=== PATIENT | female | born 1965 ===

== ENCOUNTER 2018-02-18 14:35 | Day surgery (SDC) | payer OTHER ==
[2018-02-18 15:02] VITALS: BMI 30.5
[2018-02-18] MEDS ORDERED: Barium Sulfate Susp 2.1% w/v, 2.0% w/w 450 mL Bottle PO ONE (15:09)
[2018-02-18] MEDS ORDERED: Sodium Chloride 0.45% 1,000 ML IV SCH (15:15)
--- NOTE | 2018-02-18 15:24 | ED PDOC ---
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 Patient denies fevers or chills. States she has had continued pain to the abdomen. 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 Patient states she needs to have MRI and PET scan as well as a biopsy patient denies dizziness or weakness. No chest pain or shortness of breath. No other complaints. Time/Duration: > week Past Medical History - Provider Review Nursing Documentation Reviewed: Yes - Travel History Have you recently traveled outside [place] w/in the past 3 mons?: No - Cardiac Hx Cardiac Disorders: Yes Hx Hypertension: Yes - Pulmonary Hx Respiratory Disorders: No - Neurological Hx Neurological Disorder: No - HEENT Hx HEENT Disorder: No - Renal Hx Renal Disorder: No - Endocrine/Metabolic Hx Endocrine Disorders: No - Hematological/Oncological Hx Blood Disorders: No - Integumentary Hx Dermatological Disorder: No - Musculoskeletal/Rheumatological Hx Musculoskeletal Disorders: No - Gastrointestinal Hx Gastrointestinal Disorders: No - Genitourinary/Gynecological Hx Genitourinary Disorders: No - Psychiatric Hx Psychophysiologic Disorder: No Hx Substance Use: No - Anesthesia Hx Anesthesia: No Family/Social History - Physician Review Nursing Documentation Reviewed: Yes Family/Social History: Unknown Family HX Smoking Status: Light Smoker < 10 Cigarettes Daily Hx Alcohol Use: Yes Hx Substance Use: No Allergies/Home Meds Allergies/Adverse Reactions: Allergies latex Allergy (Verified 02/14/18 10:30) RASH Home Medications: Home Meds Medication Instructions Recorded Confirmed Atorvastatin [Lipitor] 10 mg PO DAILY 02/14/18 02/18/18 Triamterene/Hydrochlorothiazid 1 cap PO DAILY 02/14/18 02/18/18 [Triamterene-Hctz 37.5-25 mg Cp] amLODIPine [Norvasc] 5 mg PO DAILY 02/14/18 02/18/18 Review of Systems - Review of Systems Constitutional: absent: Fatigue, Fevers Respiratory: absent: SOB, Cough Cardiovascular: absent: Chest Pain, Palpitations Gastrointestinal: Abdominal Pain. absent: Constipation, Diarrhea, Nausea, Vomiting Genitourinary Female: absent: Dysuria, Frequency, Hematuria Musculoskeletal: Back Pain. absent: Arthralgias, Neck Pain Skin: absent: Rash, Pruritis Neurological: absent: Headache, Dizziness Psychiatric: absent: Anxiety, Depression Physical Exam Vital Signs Reviewed: Yes Vital Signs Temp Pulse Resp BP Pulse Ox 02/18/18 17:14 86 18 123/77 97 02/18/18 15:23 98.5 F 91 H 18 115/78 99 Temperature: Afebrile Blood Pressure: Normal Pulse: Regular Respiratory Rate: Normal Appearance: Positive for: Well-Appearing, Non-Toxic, Comfortable Pain Distress: None Mental Status: Positive for: Alert and Oriented X 3 - Systems Exam Head: Present: Atraumatic Respiratory/Chest: Present: Clear to Auscultation Cardiovascular: Present: Regular Rate and Rhythm Abdomen: Present: Tenderness (+ minimal ruq tenderness rlq tenderness). No: Distention, Peritoneal Signs Medical Decision Making ED Course and Treatment: 02/18/18 18:40 52yr old female with abdominal pain, found to have ovarian mass with metastatic spread. EKG shows normal sinus rhythm at 90 bpm normal axis normal intervals no ST elevations cbc; wnl cmp; wnl pt/ptt wnl case discussed with dr. Romero; will admit to same day surgery for ct guided biopsy of omentum. impression; abdominal pain, hx of metastatic CA admit to Same day Surgery dr. Yosvany romero. - Lab Interpretations Lab Results: 02/18/18 15:50 02/18/18 15:50 Lab Results 02/18/18 15:50: WBC 9.3, RBC 4.52, Hgb 12.6, Hct 37.9, MCV 83.8, MCH 27.9, MCHC 33.2, RDW 12.9, Plt Count 412, MPV 9.1, Gran % 71.2 H, Lymph % (Auto) 18.7 L, Redwood % (Auto) 6.9 H, Eos % (Auto) 2.8, Baso % (Auto) 0.4, Gran # 6.64 H, Lymph # (Auto) 1.7, Redwood # (Auto) 0.6, Eos # (Auto) 0.3, Baso # (Auto) 0.04 02/18/18 15:50: Sodium 139, Potassium 3.3 L, Chloride 100, Carbon Dioxide 27, Anion Gap 15, BUN 13, Creatinine 1.2, Est GFR ( Amer) 57, Est GFR (Non- Af Amer) 47, Random Glucose 114 H, Calcium 9.2, Total Bilirubin 0.6, AST 33, ALT 15, Alkaline Phosphatase 93, Total Protein 9.6 H, Albumin 4.1, Globulin 5.5 , Albumin/Globulin Ratio 0.8 L 02/18/18 15:50: PT 13.6 H, INR 1.19, APTT 26.3 - RAD Interpretation Radiology Orders: 02/18/18 14:58 CT GUIDED PELVIS BX BUNDLE [CT] Routine - Medication Orders Current Medication Orders: Sodium Chloride (Sodium Chloride 0.45%) 1,000 mls @ 80 mls/hr IV .[id number] DOC Last Admin: 02/18/18 15:52 Dose: 80 mls/hr eMAR Start Stop Document 02/18/18 15:52 [place] (Rec: 02/18/18 15:52 [id number] Intravenous Solution Start Date 02/18/18 Start Time 15:52 Discontinued Medications Pantoprazole Sodium (Protonix Inj) 40 mg IVP STAT STA Stop: 02/18/18 17:40 Last Admin: 02/18/18 18:01 Dose: 40 mg IVP Administration Document 02/18/18 18:01 [place] (Rec: 02/18/18 18:01 [id number] Charges for Administration # of IVP Administrations 1 Disposition/Present on Arrival - Present on Arrival Any Indicators Present on Arrival: No History of DVT/PE: No History of Uncontrolled Diabetes: No Urinary Catheter: No History of Decub. Ulcer: No History Surgical Site Infection Following: None - Disposition Have Diagnosis and Disposition been Completed?: Yes Diagnosis: Abdominal pain, Ovarian mass, Metastatic cancer Disposition: HOSPITALIZED Disposition Time: 15:21 Patient Plan: Admission (SAME DAY SURGERY) Patient Problems: Current Active Problems Problem Status Onset Abdominal pain Acute Metastatic cancer Acute Ovarian mass Acute Condition: FAIR Referrals: Elsa Terrazas MD [Primary Care Provider] - Follow up with primary Forms: Boond (Lao)
[2018-02-18 16:21] LABS: BASO # 0.04 K/mm3 (0.0-2.0); BASO % 0.4 % (0.0-3.0); EOS # 0.3 (0.0-0.7); EOS % 2.8 % (1.5-5.0); GRAN # 6.64 (1.4-6.5); GRAN % 71.2 % (50.0-68.0); HEMOGLOBIN 12.6 g/dL (12.0-16.0); LYMPH # 1.7 (1.2-3.4); LYMPH % 18.7 % (22.0-35.0); MEAN CELL VOLUME 83.8 fl (80.0-105.0); MEAN CORPUSCULAR HEMOGLOBIN 27.9 pg (25.0-35.0); MEAN CORPUSCULAR HGB CONC 33.2 g/dl (31.0-37.0); MEAN PLATELET VOLUME 9.1 fl (7.0-11.0); MONO # 0.6 (0.1-0.6); MONO % 6.9 % (1.0-6.0); RBC 4.52 10^6/uL (3.5-6.1); RED CELL DISTRIBUTION WIDTH 12.9 % (11.5-14.5); WHITE BLOOD COUNT 9.3 10^3/ul (4.5-11.0)
[2018-02-18 16:30] LABS: INR 1.19; PARTIAL THROMBOPLASTIN TIME 26.3 Seconds (25.1-36.5); PROTHROMBIN TIME 13.6 SECONDS (9.4-12.5)
[2018-02-18 16:35] LABS: ALB/GLOB RATIO 0.8 (1.1-1.8); ALBUMIN 4.1 g/dL (3.0-4.8); CALCIUM 9.2 mg/dL (8.4-10.5)
[2018-02-18] MEDS ORDERED: Midazolam 2 MG/2 ML VIAL ONE (18:24)
[2018-02-18 19:15] VITALS: TEMP 98.9
[2018-02-18] MEDS ORDERED: Midazolam 2 MG/2 ML VIAL IVP STA (19:31)
[2018-02-18 19:38] VITALS: O2SAT 98
[2018-02-18 20:02] VITALS: BP 111/71; PULSE 70; RESP 19
--- NOTE | 2018-02-18 20:27 | CARD ---
APPROVED REPORT Date of service: 02/18/2018 EKG Measurement Heart [id number] <Conclusion> Normal sinus rhythm Cannot rule out Anterior infarct, age undetermined Abnormal ECG
--- NOTE | 2018-02-19 10:53 | CT ---
PROCEDURE: CT guided omental biopsy. HISTORY: Right ovarian mass. Ascites with right pleural effusion and carcinomatosis. Evaluate for malignancy PHYSICIAN(S): Yosvany Mckeon MD. TECHNIQUE: The relative risks and indications of the procedure were explained to the patient and consent obtained. The patient was placed supine on the CT scanner and preliminary images through the lower abdomen and pelvis obtained. Conscious sedation and monitoring were provided throughout the procedure by a nurse. There is studying of the greater omentum and a small amount of fluid present.. A left lower quadrant oblique approach was selected and the area prepped and draped in the usual sterile fashion. 1% Xylocaine was used to anesthetize the skin and soft tissues. A 17-gauge guiding needle was advanced into the abnormal omentum in the left lower quadrant at the level of the iliac crest. Its position was confirmed with CT. Using coaxial technique, multiple core biopsies were obtained. The postprocedure images show no evidence of significant hemorrhage. IMPRESSION: 1. CT-guided omental biopsy as described above.
--- NOTE | 2018-02-22 06:20 | DS ---
HISTORY OF PRESENT ILLNESS: The patient is 52 years old [place] female, who was having abdominal pain more so in the right upper quadrant and then became diffuse for almost more than 2 weeks, so she underwent CT scan of the abdomen and pelvis and had abdominal ultrasound shows ovarian mass with local carcinomatosis. The patient was advised to stay, but she got upset with the diagnosis so she wanted to go home and follow up with her PMD, so the patient was admitted on 02/14 and was discharged later on the same day. DISCHARGE DIAGNOSIS: Abdominal pain secondary to ovarian cyst, probably malignant. PLAN: The patient was advised to follow up with PMD and have biopsy done for further management. Elsa Terrazas MD
== END 2018-02-18 20:45 | disposition home or self-care (01) ==
LOC: ED 14:35 → SDS 18:00 → 5RNO 18:40 → ED 20:09 → 5RNO 20:10 → SDS 20:45
PROVIDERS: ATTEND Radiology Vascular & Interventional Radiology
DX: C78.6 Secondary malignant neoplasm of retroperitoneum and peritoneum (principal); C80.0 Disseminated malignant neoplasm, unspecified; I10 Essential (primary) hypertension; F17.210 Nicotine dependence, cigarettes, uncomplicated; J90 Pleural effusion, not elsewhere classified; R18.8 Other ascites; N83.209 Unspecified ovarian cyst, unspecified side; Z91.040 Latex allergy status
CPT/HCPCS: 49180; 77012; 80053; 85025; 85610; 85730; 88305; 93005; 96374; 99285; C9113; J7030